=== PATIENT | female | born 1950 | race Caucasian/White ===

== ENCOUNTER → 2021-06-03 14:02 | Outpatient (BNVA) | payer OTHER, SELFPAY | PROVIDERS: PCP General Practice; Referring Provider General Practice; Visit Provider Internal Medicine | DX: I10 Essential (primary) hypertension (principal); R00.2 Palpitations | CPT/HCPCS: 93005; 99202 ==

== ENCOUNTER → 2021-08-13 14:05 | Outpatient (REF) | payer OTHER, SELFPAY ==
--- NOTE | 2021-08-13 14:09 | HM_ITS ---
Conclusion: 1. Patient was monitored for total period of 3 days 2. Baseline rhythm is normal sinus rhythm with average heart rate of 65 beats per minute 3. Seven short episodes of supra chronic tachycardia noted longest at 8 beats 4. Total of 264 PACs accounting for 0.09% total burden account for rare PACs 5. No patient reported events MTDD
== END ==
LOC: HO.CARD 14:05
PROVIDERS: PCP General Practice; Visit Provider Internal Medicine
DX: R00.2 Palpitations (principal)
CPT/HCPCS: 93242

== ENCOUNTER → 2021-09-07 13:52 | Outpatient (REF) | payer MEDICARE, SELFPAY ==
--- NOTE | 2021-09-07 13:55 | CA_ITS ---
Transthoracic Echocardiogram Patient (Last, First, Middle): Charlene Anderson, Gender: Female Date of : 1950 Age: 70 Procedure Date: 09/07/2021 Procedure Type: Transthoracic Echocardiogram Location: OP Height: 160.02 cm Weight: 89.81 kg BSA: 1.93 m2 Heart Rate: bpm BP: 128 / 70 mmHg Multimedia Production Assistant: JUDY Referring MD: Angel Nguyen MD Thrill Performer: Kamran Schmidt MD Symptoms: R00.2 - Palpitations Study Quality: Fair ECG Rhythm: Sinus Conclusions: - 1. Normal LV systolic function with mild LVH with grade I diastolic dysfunction 2> Mildly dilated ascending aorta at 3.7 cm with trace AI 3. Normal RVSP 4. No gross pericardial effusion Findings Left Ventricle Normal left ventricular cavity size. There is mildly increased left ventricular wall thickness. The left ventricular systolic function is hyperdynamic. The visually estimated ejection fraction is >70%. Spectral Doppler is indicative of an impaired relaxation filling pattern. E/E prime ratio is <8, consistent with normal filling pressures. Evidence suggests grade I (mild) diastolic dysfunction. Right Ventricle Normal right ventricular cavity size and systolic function. Atria The left atrium is normal in size. Interatrial shunt cannot be excluded. The right atrium is normal in size. Aortic Valve The aortic valve was not well visualized. There is no aortic valve stenosis. There is trace (trivial) aortic valve regurgitation. Mitral Valve Likely normal mitral valve structure and function. There is trace mitral valve regurgitation. There is no mitral valve stenosis. Pulmonic Valve The pulmonic valve was not well visualized. Tricuspid Valve Likely normal tricuspid valve structure and function. There is trace tricuspid valve regurgitation. The right ventricular systolic pressure is normal. The right ventricular systolic pressure is 25 mmHg. Normal right atrial pressure. There is no evidence of pulmonary hypertension. Great Vessels The pulmonary artery was not well visualized. There is mild dilatation of the ascending aorta measuring 3.70 cm. Venous The inferior vena cava is normal in size and collapses greater than 50% with inspiration. Pericardium/Pleural There is no evidence of pericardial effusion. Prior Study Comparison No prior study available for comparison. Measurements 2D Linear Measurements IVSd: 1.29 0.6-0.9/0.6-1.0 cm LVIDd: 4.49 3.9-5.3/4.2-5.9 cm LVIDd Index: 2.33 2.4-3.2/2.2-3.1 cm/m2 LVIDs: 2.67 2.0-3.6 cm LVPWd: 1.29 0.7-1.1 cm LA Diam: 3.70 2.7-3.8/3.0-4.0 cm LAIDs Index: 1.92 1.5-2.3 cm/m2 LV Mass: 273.39 67-162/88-224 g LV Mass Index: 141.65 43-95/49-115 g/m2 LVOT Diam: 1.80 3.0+(-)1.3 cm 2D Systolic Function EF 4C: 71.80 >55% EF 2C: 80.40 >55% EF BiP: 76.80 >55% Mitral Valve MV Pk E: 0.69 MV PK A: 0.89 MV Decel Time: 239.00 E/A: 0.80 E'Lateral: 10.40 E'Medial: 8.05 E/E' Med: 8.50 E/E' Lat: 6.60 PHT: 70.00 MVA PHT: 3.14 Decel Lares: 2.87 Aortic Valve AoV Pk Henrry: 1.37 AoV Pk Grad: 8.00 AI Pk Henrry: 3.14 AI Lares: 1.19 LVOT LVOT Pk Henrry: 1.19 LVOT Mn Henrry: 0.78 LVOT VTI: 0.27 LVOT Pk Grad: 6.00 LVOT Mn Grad: 3.00 LVOT Diam: 1.80 LVOT Area: 2.54 Diastolic Function MV Pk E: 0.69 MV Pk A: 0.89 E/A: 0.80 E'Medial: 8.05 E/E' Med: 8.50 E' Laterial: 10.40 E/E' Lat: 6.60 Right Ventricle TAPSE (mm): 2.17 TVS' Henrry: 14.50 Tricuspid Valve TR Pk Henrry: 2.34 TR Pk Grad: 22.00 RA Press: 3.00 RVSP: 25.00 Great Vessels Aorta Ao Asc: 3.70 2.1-3.4 cm Updated in Other Vendor System with Status of Final Kamran Schmidt MD electronically signed on 09/07/2021 3:06:41 PM with status of Final
== END ==
LOC: HO.CARD 13:52
PROVIDERS: PCP General Practice; Visit Provider Internal Medicine Cardiovascular Disease
DX: R00.2 Palpitations (principal)
CPT/HCPCS: 93306

== ENCOUNTER → 2021-12-01 13:50 | Outpatient (BNVA) | payer MEDICARE, SELFPAY | PROVIDERS: PCP General Practice; Referring Provider General Practice; Visit Provider Nurse Practitioner Family | DX: I47.1 Supraventricular tachycardia (principal); I10 Essential (primary) hypertension; R00.2 Palpitations | CPT/HCPCS: 99212 ==

== ENCOUNTER 2022-02-04 13:13 | Outpatient (REF) | payer OTHER, SELFPAY ==
--- NOTE | ~2022-02-04 | MM_ITS ---
EXAMINATION: MM SCREENING DIGITAL BREAST TOMOSYNTHESIS, BILATERAL CLINICAL INFORMATION: Screening. Asymptomatic. The lifetime risk of breast cancer based on the Tyrer-Cuzick Model is 2%. COMPARISON: Mammography: 05/24/2016 TECHNIQUE: Digital breast tomosynthesis is performed in both the craniocaudal and mediolateral oblique views along with computer-aided detection (CAD). Synthesized 2D images are generated from the tomosynthesis. FINDINGS: There are scattered areas of fibroglandular density (ACR BI-RADS breast composition Category b). There are no significant masses, abnormal calcifications, or other abnormalities. No architectural abnormality. The axilla and skin contours are unremarkable. No significant changes. MM/MM tomosynthesis screening BI IMPRESSION: No mammographic evidence of malignancy. ASSESSMENT: BI-RADS 1: Negative RECOMMENDATION: Routine annual mammography screening. This patient's information was entered into a reminder system with a target due date for their next mammogram.
== END 2022-02-04 13:14 | disposition home or self-care (01) ==
LOC: HO.MAMMO 13:13
PROVIDERS: Visit Provider General Practice
DX: Z12.31 Encounter for screening mammogram for malignant neoplasm of breast (principal)
CPT/HCPCS: 77063; 77067

== ENCOUNTER 2024-05-25 13:31 | Emergency (ER) | payer OTHER, SELFPAY ==
--- NOTE | 2024-05-25 13:39 | ED.GENADULT ---
HPI - General Adult General Chief complaint: Skin/Abscess/Foreign Body Stated complaint: lump on back painfull Time Seen by Provider: 05/25/24 14:09 Source: patient and data support specialist (all interactions with this patient were facilitated with an [facility] optometric technologist) Mode of arrival: ambulatory Limitations: language barrier (all interactions with this patient were facilitated with an [facility] optometric technologist) History of Present Illness ED Provider: Cynthia Díaz PA-C HPI narrative: Patient is a 73 year old assigned female at with a history of HTN presenting to the emergency department today with an upper back abscess. Patient states that she had one of these on her chest before and has had the one on her back multiple times. Patient states that it will drain and then come back. Patient denies any dizziness, lightheadedness, abdominal pain, nausea, vomiting, fever, chills, blurry vision, double vision, loss of vision, chest pain, difficulty breathing, shortness of breath, back pain, night sweats, pain with urination, increased urinary frequency, increased urinary urgency, blood in her urine or stool, syncope or a near syncopal episode, recent trauma or falls, bowel incontinence, bladder incontinence, or any other complaints at this time. Relieving factors: none Exacerbating factors: none Associated symptoms: denies other symptoms Treatments prior to arrival: none Related Data Home Medications ?Medication ?Instructions ?Recorded ?Confirmed diazepam 5 mg tablet 5 mg PO DAILY 06/03/21 12/02/21 doxazosin 4 mg tablet 4 mg PO DAILY 06/03/21 12/02/21 lisinopril 20 1 tab PO DAILY 06/03/21 12/02/21 mg-hydrochlorothiazide 25 mg tablet metoprolol succinate 100 mg 100 mg PO DAILY 06/03/21 12/02/21 tablet,extended release 24 hr omeprazole 20 mg capsule,delayed 20 mg PO DAILY 06/03/21 12/02/21 release Previous Rx's ?Medication ?Instructions ?Recorded doxycycline hyclate 100 mg tablet 100 mg PO BID 7 days #14 tabs 05/25/24 Allergies Allergy/AdvReac Type Severity Reaction Status Date / Time aspirin [ASPIRIN] Allergy Unknown GI UPSET Verified 05/25/24 13:45 Review of Systems Constitutional: Constitutional: Reports no additional constitutional complaints, Denies chills, Denies fever(s) and Denies night sweats Eyes: Eyes: Reports no additional eye complaints, Denies blurry vision, Denies change in vision, Denies diplopia, Denies eye discharge, Denies loss of vision and Denies eye pain ENT: Denies dizziness Cardiovascular: Cardiovascular: Reports no additional cardiovascular complaints, Denies chest pain, Denies lightheadedness, Denies Loss of Consciousness and Denies dyspnea Respiratory: Respiratory: Reports no additional respiratory complaints and Denies dyspnea Gastrointestinal: Gastrointestinal: Reports no additional gastrointestinal complaints, Denies abdominal pain, Denies melena, Denies hematochezia, Denies change in bowel habits and Denies change in stool character Genitourinary: Genitourinary: Denies hematuria, Denies urinary frequency, Denies dysuria, Denies urinary incontinence, Denies urinary hesitancy and Denies urinary urgency Musculoskeletal: Musculoskeletal: Reports no additional musculoskeletal complaints, Denies numbness and Denies tingling Integumentary/Breasts: Comments: upper back abscess Neurologic: Denies dizziness, Denies loss of vision, Denies numbness and Denies tingling Psychiatric: Psychiatric: Reports no additional psychiatric complaints Endocrine: Endocrine: Reports no additional endocrine complaints Hematologic/Lymphatic: Hematologic/Lymphatic: Reports no additional hematologic/lymphatic complaints Allergic/Immunologic: Allergic/Immunologic: Reports no additional allergic/immunologic complaints [facility] Past Medical History Attestation statement: The following information was validated with the patient. Source: old records reviewed and nursing notes reviewed Medical History Essential hypertension Surgical History No pertinent past surgical history Family History Family History Mother Emphysema lung Father Diabetes Brother Heart disease Sister Pacemaker Social History Social History Alcohol intake: never Patient Tobacco Use Status: Never used Tobacco Advance Directives: No Advance Directives Information Provided: No Do you have a plan to hurt others: No Plan Physical Exam ED Vital Signs: Vital Signs - 24 hr 05/25/24 13:40 05/25/24 14:41 Temperature 97.7 F 97.7 F Pulse Rate 72 72 Respiratory Rate 18 18 Blood Pressure 139/59 L 139/59 L Pulse Oximetry 97 97 Oxygen Delivery Method Room Air Room Air BMI result Body Mass Index 34.5 Const General: cooperative, no acute distress, alert and awake Nutritional Appearance: well nourished Orientation/consciousness: patient oriented x3 Limitations: no limitations HENMT Head: Yes normal to inspection and Yes atraumatic Ears: hearing grossly normal bilaterally and external ears normal General nose exam: Normal external nose present, no nasal discharge noted and no epistaxis Face and sinus: Yes normal facial exam, No abrasion and No laceration Mouth: Normal oral and palatal mucosa present, no drooling and no muffled voice Eyes General: appearance normal, both eyes and all related structures Periorbital: periorbital findings normal Eyelids: Yes eyelids normal Conjunctivae: conjunctivae normal Pupils: Equal, round and reactive pupils present EOM: EOMs intact bilaterally Neck Neck: Yes normal visual inspection, Yes full ROM and Yes no lymphadenopathy Chest Chest palpation & inspection: normal inspection of the chest Resp Effort & Inspection: normal respiratory effort and able to speak in complete sentences GI Inspection: Yes normal to inspection Back/Spine/Pelvis Back/spine/pelvis image: 1. small erythematous area with fluctuance Neuro General: patient oriented x3 and moves all extremities Cranial nerves: Yes Equal, round and reactive pupils present Cognition (Neuro): normal cognition Extrem General: Yes normal to inspection, Yes full ROM and Yes capillary refill normal Psych Appearance: grossly normal Mental Status: mental status grossly normal Affect: normal affect Attitude: cooperative Thought process: Normal thought process present Thought content: Normal thought content present Insight: Good insight present (Psych) Course Course Course Narrative: This is an RME performed by Nguyen Venegas CNP: Additional HPI, ROS, PE not included below will be deferred to primary provider. Patient is a 73-year-old female who presents emergency department for evaluation of painful abscess to her upper back with onset a few days ago. On evaluation has surrounding erythema, central fluctuance, requiring drainage. Appears to have small amount of central drainage, declines attempt manual expression triage reporting that it was too painful. Will require room for incision and drainage. Denies history of diabetes. Reports a history of similar abscess on chest requiring surgical drainage. Procedures Abscess I/D Site: back Technique: needle aspiration Amount of fluid expressed (mL): 0.5 Sent for culture/gram staining?: No Irrigation: No Packing used?: none Medical Decision Making Medical Decision Making MDM Narrative: Patient is a 73 year old assigned female at with a history of HTN presenting to the emergency department today with an upper back abscess. Patient's physical exam was as noted in the physical exam portion of this note. I explained my physical exam findings to the patient. I answered all questions asked by the patient. Patient's abscess was aspirated with a needle per procedure note without incident. I stressed the importance of the patient taking her medication as directed (either prescribed or as the over the counter packaging recommends). I stressed the importance of the patient following up with her primary care provider and a general surgeon. I stressed the importance of the patient returning to the emergency department immediately if her symptoms were to worsen or if she were to develop any dizziness, shortness of breath, difficulty breathing, chest pain, blurry vision, loss of vision, nausea, vomiting, abdominal pain, fever, chills, back pain, or any other complaints. Patient verbalized agreement and understanding with this treatment plan and discharge. Differential Diagnosis Differential Diagnoses: The differential diagnosis associated with the presentation includes Abscess Admission/Observation Consideration of admission/observation: Escalation of care including admission/observation considered Patient would have been admitted to the hospital had her clinical presentation warranted hospital admission. Prescription Management I considered prescription management with: Antibiotic (patient prescribed an antibiotic for her abscess) Chronic Conditions Patient?s care impacted by: Hypertension Discharge Plan Discharge Clinical Impression: Abscess Patient Disposition: Home, Self-Care Instructions: Abscess Incision and Drainage (DC) Additional Instructions: Follow up with your primary care provider and a general surgeon. Take your antibiotic as prescribed. Return to the emergency department immediately if your symptoms worsen or if you develop any dizziness, shortness of breath, difficulty breathing, chest pain, blurry vision, loss of vision, nausea, vomiting, abdominal pain, fever, chills, back pain, or any other complaints. Godwin un seguimiento con cadet m?dico de cabecera y un cirujano general. [place] el antibi?mark seg?n lo prescrito. Acuda inmediatamente al servicio de urgencias si hattie s?ntomas empeoran o si presenta mareos, falta de aliento, dificultad para respirar, dolor tor?cico, visi?n borrosa, p?rdida de visi?n, n?useas, v?mitos, dolor abdominal, fiebre, escalofr?os, dolor de espalda o cualquier otra molestia. Prescriptions: New doxycycline hyclate 100 mg tablet 100 mg PO BID 7 Days Qty: 14 0RF No Action lisinopril-hydrochlorothiazide 20-25 mg tablet 1 tab PO DAILY doxazosin 4 mg tablet 4 mg PO DAILY metoprolol succinate 100 mg tablet extended release 24 hr 100 mg PO DAILY diazepam 5 mg tablet 5 mg PO DAILY omeprazole 20 mg capsule,delayed release(DR/EC) 20 mg PO DAILY Referrals: [facility] General Surgeons [Provider Group] (Call to establish and follow up with a general surgeon. Llame para establecer y seguir con un cirujano general.) Name,MD Richard [Primary Care Provider] - Interventions: ED Discharge Assessment Last Done: 05/25/24 14:41 Discharge Date/Time: 05/25/24 14:51 Print Language: [place] Citizen
[2024-05-25 13:40] VITALS: BP 139/59; PULSE 72; RESP 18; TEMP 36.5; O2SAT 97; BMI 34.5
[2024-05-25 14:41] VITALS: BP 139/59; PULSE 72; RESP 18; TEMP 36.5; O2SAT 97
== END 2024-05-25 14:51 | disposition home or self-care (01) ==
PROVIDERS: Emergency Provider Emergency Medicine; PCP Internal Medicine Geriatric Medicine
DX: L02.212 Cutaneous abscess of back [any part, except buttock and flank] (principal); I10 Essential (primary) hypertension
CPT/HCPCS: 10160; 99282; 99284

== ENCOUNTER 2024-12-06 15:34 | Emergency (ER) | payer OTHER, SELFPAY ==
[2024-12-06 15:41] VITALS: BP 178/94; PULSE 65; O2SAT 95
[2024-12-06 15:47] VITALS: BP 171/73; PULSE 70; RESP 18; TEMP 36.8; O2SAT 95; BMI 33.6
--- NOTE | 2024-12-06 15:49 | ECG_ITS ---
Test Reason : DIZZINESS Blood Pressure : */* mmHG Vent. Rate : 68 BPM Atrial Rate : 68 BPM P-R Int : 168 ms QRS Dur : 72 ms QT Int : 408 ms P-R-T Axes : 56 -8 13 degrees QTcB Int : 433 ms Normal sinus rhythm Normal ECG When compared with ECG of 17-Sep-2016 23:47, No significant change was found Referred By: Shlomo Amado Electronically Signed By: SHELDON VILLAGOMEZ MD
[2024-12-06 16:19] LABS: Basophils Percent Auto 0.3 % (0-2); Hemoglobin 13.4 g/dl (12.0-16.0); Imm Gran Abs Auto 0.05 X10*3/uL (0.00-0.03); Imm Gran Pct Auto 0.7 % (0.0-0.4); MANUAL DIFF FLAG SCAN; PLT CLUMP 1; Red Cell Distribution Width 13.2 % (11.0-16.0); SCAN SMEAR FLAG 1
[2024-12-06 16:20] LABS: Eosinophils Percent Auto 0.5 % (0-4); Hematocrit 38.6 % (37.0-47.0); Lymphocytes Absolute Auto 1.9 X10*3/uL (1.2-4.9); Lymphocytes Percent Auto 25.3 % (20-40); Mean Corpuscular HGB Conc 34.7 g/dl (31.0-35.0); Mean Corpuscular Hemoglobin 30.8 pg (27.0-33.0); Mean Corpuscular Volume 88.7 fL (80.0-98.0); Mean Platelet Volume 9.6 fL (9.4-12.3); Monocytes Absolute Auto 0.5 X10*3/uL (0.1-1.2); Monocytes Percent Auto 7.3 % (2-11); Neutrophils Absolute Auto 4.9 x10*3/uL (2.0-8.3); Neutrophils Percent Auto 65.9 % (45-73); Red Blood Count 4.35 X10*6/uL (4.20-5.50)
[2024-12-06 16:27] LABS: Troponin-I High Sensitivity 3.8 ng/L (<3.5-17.0)
[2024-12-06 16:30] LABS: White Blood Count 7.4 X10*3/uL (4.8-10.8)
[2024-12-06 16:32] LABS: Alanine Aminotransferase 11 U/L (0-31); Albumin Level 3.7 g/dL (3.5-5.0); Anion Gap 15 (12-20); Aspartate Amino Transferase 36 U/L (5-31); Bilirubin Total 0.3 mg/dL (0.0-1.0); Blood Urea Nitrogen 13 mg/dL (9-16); Calcium 9.4 mg/dL (8.4-10.2); Carbon Dioxide 25 mmol/L (22-29); Chloride 99 mmol/L (96-108); Creatinine Clr Calc Pharmacy 64.5; Estimated Glomerular Filt Rate > 60; Glucose Random 140 mg/dL (60-115); Magnesium 1.8 mg/dL (1.6-2.6); Potassium 4.7 mmol/L (3.3-5.1); Sodium 134 mmol/L (135-145); Total Protein 7.8 g/dL (6.5-8.0)
--- NOTE | 2024-12-06 16:39 | ED.GENADULT ---
HPI - General Adult General Chief complaint: General Medical Stated complaint: DIZZY,ABD PAIN Time Seen by Provider: 12/06/24 16:01 Source: patient Mode of arrival: ambulatory Limitations: no limitations History of Present Illness ED Provider: Dr. Misty Slater HPI narrative: Patient comes to the emergency room complaining of dizziness. Patient states that for a few days she has had intermittent dizziness described as the whole room spinning. Patient states that she moves the head a certain way or she stands up too fast everything spins around. The dizziness makes her feel very nauseous and has had episodes of vomiting. Patient denies abdominal pain. Patient denies fever chills, denies chest pain or shortness of breath, denies hematuria or dysuria. Related Data Home Medications ?Medication ?Instructions ?Recorded ?Confirmed diazepam 5 mg tablet 5 mg PO DAILY 06/03/21 12/02/21 doxazosin 4 mg tablet 4 mg PO DAILY 06/03/21 12/02/21 lisinopril 20 1 tab PO DAILY 06/03/21 12/02/21 mg-hydrochlorothiazide 25 mg tablet metoprolol succinate 100 mg 100 mg PO DAILY 06/03/21 12/02/21 tablet,extended release 24 hr omeprazole 20 mg capsule,delayed 20 mg PO DAILY 06/03/21 12/02/21 release Previous Rx's ?Medication ?Instructions ?Recorded doxycycline hyclate 100 mg tablet 100 mg PO BID 7 days #14 tabs 05/25/24 meclizine 25 mg tablet 25 mg PO TID PRN dizziness #14 tabs 12/06/24 Allergies Allergy/AdvReac Type Severity Reaction Status Date / Time aspirin [ASPIRIN] Allergy Unknown GI UPSET Verified 12/06/24 15:49 Review of Systems Review of Systems: Constitutional : No Weight loss, No Fever, No Chills, No Night Sweats, No Fatigue, No Malaise ENT/Mouth : No Hearing loss, No Ear Pain, No Nasal Congestion, No Sinus Pain, No Hoarseness, No sore throat, No Rhinorrhea, No Swallowing Difficulty Eyes: No Eye Pain, No Swelling, No Redness, No Foreign Body, No Discharge, No Vision Changes Cardiovascular : No Chest Pain, No SOB, No Dyspnea on Exertion, No Orthopnea, No Edema, No Palpitations Respiratory : No Cough, No Sputum, No Wheezing, No Smoke Exposure, No Dyspnea Gastrointestinal : No Nausea, No Vomiting, No Diarrhea, No Constipation, No abdominal Pain, No Hematochezia, No Melena Genitourinary : no irregular bleeding, No Dysuria, No Urinary Frequency, No Hematuria, No Urinary Incontinence, No Urgency, No Flank Pain, No Urinary Flow Changes, No Hesitancy Musculoskeletal : No joint pain, No Myalgias, No Joint Swelling Skin : No Skin Lesions, No rash Neuro : No Weakness, No Numbness, No Paresthesias, No Loss of Consciousness, Denies headache, patient complaining of dizziness Psych : No Anxiety/Panic, No Depression, No SI/HI/AH/VH, No Social Issues, Heme/Lymph: No Bruising, No Bleeding,No Lymphadenopathy Endocrine : No Polyuria, No Polydipsia, No Temperature Intolerance [facility] Past Medical History Medical History (Updated 12/06/24 @ 20:29 by Misty Slater MD) Vertigo Essential hypertension Surgical History No pertinent past surgical history Family History Family History Mother Emphysema lung Father Diabetes Brother Heart disease Sister Pacemaker Social History Social History Alcohol intake: former Patient Tobacco Use Status: Never used Tobacco Smoked in Last 30 Days: No Use of substances other than those prescribed or required for medical reasons: No Advance Directives: No Advance Directives Information Provided: No Physical Exam ED Vital Signs: Vital Signs - 24 hr 12/06/24 15:47 12/06/24 17:12 12/06/24 18:00 Temperature 98.2 F 98.9 F Pulse Rate 70 62 69 Respiratory Rate 18 18 18 Blood Pressure 171/73 H 134/56 L 157/72 H Pulse Oximetry 95 97 98 Oxygen Delivery Method Room Air Room Air Room Air 12/06/24 19:44 Temperature 98.7 F Pulse Rate 68 Respiratory Rate 14 Blood Pressure 133/56 L Pulse Oximetry 98 Oxygen Delivery Method Room Air BMI result Body Mass Index 33.6 Course Course Course Narrative: patient receiving IV fluids, Zofran in meclizine p.o. Medications Administered Discontinued Medications Generic Name Dose Route Start Last Admin Trade Name Freq PRN Reason Stop Dose Admin Sodium Chloride 1,000 mls @ 999 mls/hr 12/06/24 16:38 12/06/24 18:26 Ns IVCONT 12/06/24 17:38 Infused .Q1H1M ONE Infusion Meclizine HCl 50 mg 12/06/24 16:38 12/06/24 17:12 Meclizine Hcl 25 Mg Tablet PO 12/06/24 16:39 50 mg ONCE ONE Administration Ondansetron HCl 4 mg 12/06/24 16:38 12/06/24 17:12 Ondansetron Hcl 4 Mg/2 Ml Vial IVPUSH 12/06/24 16:39 4 mg ONCE ONE Administration Medical Decision Making Medical Decision Making [facility] Narrative: my interpretation of labs: Normal hematology and chemistry, normal LFTs , normal troponin after IV fluids and meclizine, patient states that she feels completely back to normal. Patient denies any dizziness, able to walk With her baseline gait. Patient denies any chest pain or shortness of breath, patient being discharged in stable condition blood pressure 133/56, heart rate 68, respirations 14, oxygen saturation 98% on room air. Steady gait I discussed with the patient that the symptoms she had were likely secondary to BPPV rather than gastroenteritis patient's symptoms completely resolved, CVA is not suspected Lab Data 12/06/24 15:59 12/06/24 15:59 Labs: Lab Results 12/06/24 12/06/24 Range/Units 15:59 16:00 WBC 7.4 (4.8-10.8) X10*3/uL RBC 4.35 (4.20-5.50) X10*6/uL Hgb 13.4 (12.0-16.0) g/dl Hct 38.6 (37.0-47.0) % MCV 88.7 (80.0-98.0) fL MCH 30.8 (27.0-33.0) pg MCHC 34.7 (31.0-35.0) g/dl RDW 13.2 (11.0-16.0) % Plt Count 259 (160-400) X10*3/uL MPV 9.6 (9.4-12.3) fL Immature Gran % (Auto) 0.7 H (0.0-0.4) % Neut % (Auto) 65.9 (45-73) % Lymph % (Auto) 25.3 (20-40) % [place] % (Auto) 7.3 (2-11) % Eos % (Auto) 0.5 (0-4) % Baso % (Auto) 0.3 (0-2) % Lymph # (Auto) 1.9 (1.2-4.9) X10*3/uL [place] # (Auto) 0.5 (0.1-1.2) X10*3/uL Eos # (Auto) 0.0 (0.0-0.4) X10*3/uL Baso # (Auto) 0.0 (0.0-0.2) X10*3/uL Abs Immat Gran (auto) 0.05 H (0.00-0.03) X10*3/uL Absolute Neuts (auto) 4.9 (2.0-8.3) x10*3/uL Absolute Nucleated RBC 0.000 (0.0-0.012) X10*3/uL Nucleated RBC % (auto) 0.0 (0.0-0.2) /100WBC Smear Tech's Comments VERIFIED Hold Purple Top SEE NOTE Hold Blue Top SEE NOTE Sodium 134 L (135-145) mmol/L Potassium 4.7 (3.3-5.1) mmol/L Chloride 99 (96-108) mmol/L Carbon Dioxide 25 (22-29) mmol/L Anion Gap 15 (12-20) BUN 13 (9-16) mg/dL Creatinine 0.80 (0.5-1.4) mg/dL Estim Creat Clear Calc 64.5 Estimated GFR > 60 Random Glucose 140 H (60-115) mg/dL Calcium 9.4 (8.4-10.2) mg/dL Magnesium 1.8 (1.6-2.6) mg/dL Total Bilirubin 0.3 (0.0-1.0) mg/dL AST 36 H (5-31) U/L ALT 11 (0-31) U/L Alkaline Phosphatase 66 (39-117) U/L Troponin I High Sens 3.8 (<3.5-17.0) ng/L Total Protein 7.8 (6.5-8.0) g/dL Albumin 3.7 (3.5-5.0) g/dL Lipase 35 (8-78) U/L Discharge Plan Discharge Clinical Impression: Vertigo Patient Disposition: Home, Self-Care Instructions: Vertigo (ED) Additional Instructions: Please follow-up with your primary care physician tomorrow. If you have any worsening or new symptoms, please return to the emergency room or call 911 Prescriptions: New meclizine 25 mg tablet 25 mg PO TID PRN (Reason: dizziness) Qty: 14 0RF No Action doxycycline hyclate 100 mg tablet 100 mg PO BID 7 Days Qty: 14 0RF lisinopril-hydrochlorothiazide 20-25 mg tablet 1 tab PO DAILY doxazosin 4 mg tablet 4 mg PO DAILY metoprolol succinate 100 mg tablet extended release 24 hr 100 mg PO DAILY diazepam 5 mg tablet 5 mg PO DAILY omeprazole 20 mg capsule,delayed release(DR/EC) 20 mg PO DAILY Print Language: Upper Sorbian
[2024-12-06 16:56] LABS: Lipase 35 U/L (8-78)
[2024-12-06 17:07] LABS: Alkaline Phosphatase 66 U/L (39-117)
[2024-12-06 17:12] VITALS: BP 134/56; PULSE 62; RESP 18; TEMP 37.2; O2SAT 97
[2024-12-06] MEDS: Meclizine HCl 25 MG TABLET 50 MG PO (17:12)
[2024-12-06] MEDS: ondansetron HCL 4 MG/2 ML VIAL IVPUSH (17:12)
[2024-12-06] MEDS: 0.9 % Sodium Chloride 1,000 ML 999 ML IVCONT (17:12)
[2024-12-06 17:35] LABS: Platelet Count 259 X10*3/uL (160-400); SLIDE REVIEW VERIFIED
[2024-12-06 18:00] VITALS: BP 157/72; PULSE 69; RESP 18; O2SAT 98
[2024-12-06 19:44] VITALS: BP 133/56; PULSE 68; RESP 14; TEMP 37.1; O2SAT 98
--- NOTE | 2024-12-06 19:58 | PC.NURSE ---
pt reports relief of dizziness, ambulated with patient without difficulty. MD Slater aware. will d/c.
[2024-12-06 20:32] VITALS: BP 133/56; PULSE 68; RESP 14; TEMP 37.1; O2SAT 98
== END 2024-12-06 20:36 | disposition home or self-care (01) ==
PROVIDERS: Physician Assistant; Emergency Provider Emergency Medicine; PCP General Practice
DX: R42 Dizziness and giddiness (principal); I10 Essential (primary) hypertension
CPT/HCPCS: 36415; 80053; 83690; 83735; 84484; 85025; 93005; 96361; 96374; 99284; J2405

== ENCOUNTER → 2024-12-06 15:49 | Outpatient (BNV) | payer OTHER, SELFPAY | PROVIDERS: Emergency Provider Emergency Medicine; PCP General Practice; Visit Provider Internal Medicine Cardiovascular Disease | DX: R42 Dizziness and giddiness (principal) | CPT/HCPCS: 93010 ==

== ENCOUNTER 2025-06-12 09:35 | Outpatient (REF) | payer OTHER, SELFPAY ==
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
--- OUTSIDE RECORDS SUMMARY | 2025-06-12 10:36 | XMS_ITS | Encounter Summary ---
Author Organization [employer] Address [address] [facility] [address] [facility] [address] [place] [address] Care Team Providers Care Painting Trades Worker Name Role Phone Leatha Menendez MD Primary Care Provider Encounter Details Date Type Department Care Team ([facility] st Contact Info) Description 08/05/2024 Telephone [facility] [address] [place], [place] [phone] Leatha Menendez MD [address] [place], [place] [phone] Social History Tobacco Use Types Packs/Day Years Used Date Smoking Tobacco: Never Smokeless Tobacco: Never Alcohol Use Standard Drinks/Week Comments Never 0 (1 standard drink = 0.6 oz pur e alcohol) PHQ-2 Answer Date Recorded Patient Health Questionnaire-2 Score 0 10/07/2022 Housing Stability Answer Date Recorded What is your housing situation today? I have gee burden 07/22/[address] you li [...] things needed for daily living? No 07/22/2023 Utilities Answer Date Recorded In the past 12 months, has t he electric, gas, oil or water company threatened to shut off services in your home? No 07/22/2023 Depression Answer Date Recorded Patient Health Questionnaire-2 Score 0 10/07/2022 Comments Unknown Sex and Gender Information Value Date Recorded Sex Assigned at Female 07/11/2022 10:16 AM EDT Legal Sex Female 10:16 AM EDT Gender Identity Female 07/11/2022 10:16 AM EDT Sexual Orientation Straight 07/11/2022 10 :16 AM EDT documented as of this encounter Plan of Treatment Upcoming Encounters Date Type Department Care Team (Late st Contact Info) Description 08/11/2025 1:30 PM EST Office Visit [facility] [address] [place] [address] Leatha Menendez MD [address] [place] [address] 08/26/2025 1:30 PM EST Office Visit [facility] [address] [place] [address] Eduar, Esha, OD [address] [place] [address] documented as of this encounter Visit Diagnoses Not on filedocumented in this encounter Care Teams Painting Trades Worker Relationship Specialty Start Date End Date Leatha Menendez MD [address] [place] [address] PCP - General Family Medicine 09/25/20 documented as of this encounter
--- OUTSIDE RECORDS SUMMARY | 2025-06-12 10:36 | XMS_ITS | Encounter Summary ---
Author Organization [employer] Address [address] [facility] 7t [place] [address] Care Team Providers Care Parts Cleaner Name Role Phone Leatha Menendez MD Primary Care Provider [phone] Encounter Details Date Type Department Care Team (Latest Contact Info) Description 06/10/2025 Travel Social History Tobacco Use Types Packs/Day Years [...] the past 12 months, has t he [employer], gas, oil or water company threatened to [...] Description 08/11/2025 1:30 PM EST Office Visit [facility] [address] [place] [address] Leatha Menendez MD [address] [place] [address] 08/26/2025 1:30 PM EST Office Visit [facility] [address] [place] [address] Esha Witt, OD [address] [place] [address] documented as of this encounter Visit Diagnoses Not on filedocumented in this encounter Additional Health Concerns Assessment Noted Time PHQ-9 Depression Total Score: 13 025 10:38 AM EDT documented as of this encounter Care Teams Parts Cleaner Relationship Specialty Start Date End Date Leatha Menendez MD [address] [place] [address] PCP - General Family Medicine 09/25/20 documented as of this encounter
--- OUTSIDE RECORDS SUMMARY | 2025-06-12 10:36 | XMS_ITS | Encounter Summary ---
Author Organization [employer] Address [address] [facility] 7t [place] [address] Care Team Providers Care Zipper Lining Folder Name Role Phone Leatha Menendez MD Primary Care Provider [phone] Encounter Details Date Type Department Care Team (Late Contact Info) Description 02/03/2023 Telephone [facility] [address] [place], [place] [phone] Eduar, Esha, OD [address] [place] [address] Social History Tobacco Use Types Packs/Day Years Used Date Smoking Tobacco: Never Smokeless Tobacco: Never PHQ-2 Answer Date Recorded Patient Health Questionnaire-2 Score 0 10/07/2022 Depression Answer Date Recorded Patient Health Questionnaire-2 Score 0 10/07/2022 Comments Unknown Sex and Gender Information Value Date Recorded Sex Assigned at Female 07/11/2022 10:16 AM EDT Legal Sex Female 10:16 AM EDT Gender Identity Female 07/11/2022 10:16 AM EDT Sexual Orientation Straight 07/11/2022 10 :16 AM EDT COVID-19 Exposure Response Date Recorded In the last 10 days, have yo u been in contact with someone who was confirmed or suspected to have Coronavirus/COVID-19? No / Unsure 01/27/2023 2:53 PM EDT documented as of this encounter Plan of Treatment Upcoming Encounters Date Type Department Care Team (Late Contact Info) Description 08/11/2025 1:30 PM EST Office Visit [facility] [address] [place] [address] Leatha Menendez MD [address] [place] [address] 08/26/2025 1:30 PM EST Office Visit [facility] [address] [place], [place] [phone] Esha Witt, OD [address] [place] [address] documented as of this encounter Visit Diagnoses Not on filedocumented in this encounter Care Teams Zipper Lining Folder Relationship Specialty Start Date End Date Leatha Menendez MD [address] [place], [place] [phone] PCP - General Family Medicine 09/25/20 documented as of this encounter
--- OUTSIDE RECORDS SUMMARY | 2025-06-12 10:36 | XMS_ITS | Encounter Summary ---
Author Organization [employer] Address [address] [facility] 7t [place] [address] Care Team Providers Care Biomechanical Engineer Name Role Phone Leatha Menendez MD Primary Care Provider [phone] Encounter Details Date Type Department Care Team (Late Contact Info) Description 08/19/2022 Orders Only [facility] [address] [place] [phone] Leatha Menendez MD [address] [place] [address] Allergy, sequela (Primary Dx); Itching Social History Tobacco Use Types Packs/Day Years Used Date Smoking Tobacco: Never Assessed Comments Unknown Sex and Gender Information Value Date Recorded Sex Assigned at Female 07/11/2022 10:16 AM EDT Legal Sex Female 10:16 AM EDT Gender Identity Female 07/11/2022 10:16 AM EDT Sexual Orientation Straight 07/11/2022 10 :16 AM EDT documented as of this encounter Plan of Treatment Upcoming Encounters Date Type Department Care Team (Late Contact Info) Description 08/11/2025 1:30 PM EST Office Visit [facility] [address] [place] [address] Leatha Menendez MD [address] [place] [address] 08/26/2025 1:30 PM EST Office Visit [facility] [address] [place] [address] Eduar, Esha, OD [address] [place] [address] documented as of this encounter Visit Diagnoses Diagnosis Allergy, sequela- Primary Itching Unspecified pruritic disorder documented in this encounter Care Teams Biomechanical Engineer Relationship Specialty Start Date End Date Leatha Menendez MD [address] [place] [phone] PCP - General Family Medicine 09/25/20 documented as of this encounter
--- OUTSIDE RECORDS SUMMARY | 2025-06-12 10:36 | XMS_ITS | Encounter Summary ---
Author Organization [employer] Address [address] [facility] 7t [place] [address] Care Team Providers Care Strategic Planning Director Name Role Phone Leatha Menendez MD Primary Care Provider [phone] Reason for Visit * Reason Onset Date Comments Chart Prep 06/09/2025 Encounter Details Date Type Department Care Team ([facility] st Contact Info) Description 06/09/2025 Telephone [facility] MEDICINE [address] [place], [place] [phone] Leatha Menendez MD [address] [place], [place] [phone] Chart Prep Social History Tobacco Use Types Packs/Day Years [...] the past 12 months, has t he [employer], Consumer Agent [employer] (CAP), oil or water [employer] threatened to shut off services in your home? No 07/22/2023 Depression Answer Date Recorded Patient Health Questionnaire-2 Score 6 02/04/2025 Comments Unknown Sex and Gender Information Value Date Recorded Sex Assigned at Female 07/11/2022 10:16 AM EDT Legal Sex Female 10:16 AM EDT Gender Identity Female 07/11/2022 10:16 AM EDT Sexual Orientation Straight 07/11/2022 10 :16 AM EDT documented as of this encounter Miscellaneous Notes * Telephone Encounter - Lizzie Mcpherson [place] - 06/09/2025 3:22 PM EDT Chart Prep Labs: not applicable Images: done Referrals: Patient refuse seen at other facility Vaccines due: Covid, Flu, Tdap, RSV, and Zoster Screenings: not applicable Overdue care gaps: SDOH, PHQ-9, and VIJAY-7 documented in this encounter Plan of Treatment Upcoming Encounters Date Type Department Care Team (Late st Contact Info) Description 08/11/2025 1:30 PM EST Office Visit [facility] MEDICINE [address] [place] [address] Leatha Menendez MD [address] [place] [address] 08/26/2025 1:30 PM EST Office Visit [facility] OPTOMETRY [address] [place], [place] [phone] Esha Witt, OD [address] [place] [address] documented as of this encounter Visit Diagnoses Not on filedocumented in this encounter Additional Health Concerns Assessment Noted Time PHQ-9 Depression Total Score: 13 02/04/ 025 10:38 AM EDT documented as of this encounter Care Teams Strategic Planning Director Relationship Specialty Start Date End Date Leatha Menendez MD [address] [place], [place] [phone] PCP - General Family Medicine 09/25/20 documented as of this encounter
--- OUTSIDE RECORDS SUMMARY | 2025-06-12 10:37 | XMS_ITS | Encounter Summary ---
Author Organization [employer] Address [address] [facility] 7t [place] [address] Care Team Providers Care Ambulance Driver Name Role Phone Leatha Menendez MD Primary Care Provider Reason for Visit * Reason Comments Med Refill Encounter Details Date Type Department Care Team (Late st Contact Info) Description 11/10/2022 Refill [facility] MED & PEDS [address] [place], [place] [phone] Leatha Menendez MD [address] [place] [address] [phone] Rash and nonspecific skin eruption Social History Tobacco Use Types Packs/Day Years Used Date Smoking Tobacco: Never Assessed PHQ-2 Answer Date Recorded Patient Health Questionnaire-2 [...] 1:30 PM EST Office Visit [facility] MEDICINE [address] [place], [place] [phone] Leatha Menendez MD [address] [place] [address] [phone] 08/26/2025 1:30 PM EST Office Visit [facility] OPTOMETRY [address] [place] [address] Esha Witt, OD [address] [place] [address] documented as of this encounter Visit Diagnoses Diagnosis Rash and nonspecific skin eruption Rash and other nonspecific skin eruption documented in this encounter Care Teams Ambulance Driver Relationship Specialty Start Date End Date Leatha Menendez MD [address] [place] [address] PCP - General Family Medicine 09/25/20 documented as of this encounter
--- OUTSIDE RECORDS SUMMARY | 2025-06-12 10:37 | XMS_ITS | Clinical Summary ---
Author Organization [facility] Address [address] [place] [address] [place] [address] Phone Care Team Providers Care Semiconductor Wafers Etch Operator Name Role Phone Leatha Menendez MD Primary Care Provider [phone] Allergies No known active allergies Medications diazePAM (VALIUM) 5 MG tablet Take by mouth every 8 (eight) hours if needed for anxiety Active cyclobenzaprine (FLEXERIL) 10 MG tablet Take 10 mg by mouth 3 (three) times a day if needed for muscle spasms Active acetaminophen (TYLENOL 8 HOUR) 650 MG 8 hr tablet Take 650 mg by mouth every 8 (eight) hours if needed for mild pain Do not crush, chew, or split. Active lisinopril-hydr oCHLOROthiazide (PRINZIDE,ZESTO RETIC) 20-25 MG per tablet Take 1 tablet by mouth 1 (one) time each day Active metoprolol succinate XL (TOPROL-XL) 100 MG 24 hr tablet Take 100 mg by mouth 1 (one) time each day Do not crush or chew. Active doxazosin (CARDURA) 4 MG tablet Take 4 mg by mouth every night Active atorvastatin (LIPITOR) 40 MG tablet Take 40 mg by mouth 1 (one) time each day Active Valerian Root 100 MG capsule Take by mouth Active Melatonin 5 MG capsule Take by mouth Active omeprazole (PriLOSEC) [address] capsule Take 20 mg by mouth 1 (one) time each day Do not crush or chew. Active carbamide peroxide (DEBROX) 6.5 % otic solution 5 drops 2 (two) times a day Active Social History Tobacco Use Types Packs/Day Years Used Date Smoking Tobacco: Never Smokeless Tobacco: Never Alcohol Use Standard Drinks/Week Comments Never 0 (1 standard drink = 0.6 oz pur e alcohol) Comments Unknown Sex and Gender Information Value Date Recorded Sex Assigned at Not on file Legal Sex Female 11:43 AM EDT Gender Identity Not on file Sexual Orientation Not on file Plan of Treatment Health Maintenance Due Date Last Done Comments Pneumococcal Vaccine: 50+ Ye ars (1 of 1 - PCV) 1998 Influenza Vaccine (#1) 2025 Hepatitis B Vaccine Aged Out No longe r eligible based on patient's age to complete this topic Insurance # [address] [place] [id number] [facility] Care Teams Semiconductor Wafers Etch Operator Relationship Specialty Start Date End Date Leatha Menendez MD [address] [place] [address] PCP - General Uppers Edge Burnisher 04/20/21
--- OUTSIDE RECORDS SUMMARY | 2025-06-12 10:37 | XMS_ITS | Clinical Summary ---
Author Organization [employer] Address [address] [facility] 7t [place] [address] Care Team Providers Care Traffic Signal Technician Name Role Phone Leatha Menendez MD Primary Care Provider [phone] Allergies Active Allergy Reactions Criticality Noted Date Comments Aspirin 08/17/2016 Other reaction(s): nausea, upset stomach Medications * This document contains information received from the source organization and may not represent a complete record from that organization. betamethasone dipropionate (Diprolene) 0.05 % ointmentIndicati ons:Rash and nonspecific skin eruption Apply to affected area(s) a thin layer daily for 7-10 days, no more 90 g 3 Active diazePAM (Valium) 5 MG tablet Take 1 tablet by mouth three times daily as needed 3 Active latanoprost (Xalatan) 0.005 % ophthalmic solution 3 Active melatonin 5 MG tablet TAKE 1 TABLET BY MOUTH AT BEDTIME FOR SLEEP 2 Active triamcinolone (Kenalog) 0.1 % cream Mix with 454 grams of cerave cream and apply thin layer of mixture topically to the affected area twice daily for 2 weeks 2 Active Valerian Root 100 MG capsule Take by mouth. 1 Active omeprazole (PriLOSEC) [address] capsule Take 20 mg by mouth 1 (one) time each day Do not crush or chew. 1 Active Menthol-Methyl Salicylate (Muscle Rub) 10-15 % creamIndications :Muscle spasms of neck Apply 1 application topically if needed in the morning, at noon, and at bedtime (spasm). 85 g 2 3 Active metoprolol succinate XL (Toprol-XL) 100 MG 24 hr tablet TAKE 1 TABLET BY MOUTH DAILY 90 tablet 3 5 Active lisinopril-hydro CHLOROthiazide 20-25 MG tablet TAKE 1 TABLET BY MOUTH DAILY 90 tablet 3 5 Active atorvastatin (Lipitor) 20 MG tablet Take 1 tablet (20 mg) by mouth Once per day. 90 tablet 3 5 02/05/20 26 Active cetirizine (ZyrTEC) 10 MG tablet Take 1 tablet (10 mg) by mouth Once per day. For vertigo, as needed 30 tablet 11 5 02/05/20 26 Active DULoxetine (Cymbalta) [address] capsule Take 1 capsule (20 mg) by mouth Once per day. Do not crush or chew. 90 capsule 3 5 02/05/20 26 Active doxazosin (Cardura) 4 MG tablet TAKE 1 TABLET BY MOUTH DAILY 90 tablet 3 5 Active ketorolac (Acular) 0.5 % ophthalmic solutionIndicati ons:Other glaucoma of both eyes 5 Active prednisoLONE acetate (Pred-Forte) 1 % ophthalmic suspensionIndica tions:Other glaucoma of both eyes 5 Active Active Problems Problem Noted Date Diagnosed Date Atrial tachycardia 02/04/2025 Heart palpitations 02/04/2025 Chronic right shoulder pain 02/04/2025 Assessment & Plan (02/04/2025 5:10 PM EDT): Consider chronic pain group, trigger points, acupuncture Muscle spasms of neck 03/28/2023 Assessment & Plan (03/28/2023 8:31 PM EDT): Bilateral trapezius spasms Hot towel Gentle ROM stretching Flexeril, muscle rub PT referral Hypertensive kidney disease, stage III (CMS/HCC) 01/18/2021 Assessment & Plan (03/28/2023 8:38 PM EDT): Avoid nephrotoxins followup with nephro BP control Assessment & Plan (10/10/2022 12:50 PM EST): Avoid nephrotoxins followup with nephro BP control Arthritis of left acromioclavicular joint 2017 Assessment & Plan (10/10/2022 12:51 PM EST): Conservative mgmt Does not desire injections of surgery currently Degeneration of cervical intervertebral disc 07/2018 Lumbar spondylosis 04/01/2017 Helicobacter pylori gastritis 08/12/2016 Dyslipidemia 07/06/2016 Adjustment disorder with anxious mood 07/01/2016 Assessment & Plan (03/28/2023 8:39 PM EDT): Continue followup with Marcello Parson Encouraged her to talk to her family about how she is not feeling heard or believed Assessment & Plan (10/10/2022 12:50 PM EST): Continue followup with Marcello Parson Impaired fasting glucose 05/30/2016 Essential hypertension 05/13/2016 Assessment & Plan (03/28/2023 8:38 PM EDT): At goal at home <140/90 most of the time She does not want to add more medications currently Assessment & Plan (10/10/2022 12:50 PM EST): Not at goal some days, but other days <140/90 Switch meds to evening to lower AM Bps that are usually the higher ones Impingement syndrome of shoulder region 05/13/20 16 Obesity 05/13/2016 Osteoarthritis of knee 05/13/2016 Tinnitus 05/13/2016 Resolved Problems Problem Noted Date Diagnosed Date Resolved Date Abscess 02/04/2025 06/10/2025 Encounters * This document contains information received from the source organization and may not represent a complete record from that organization. Date Type Department Care Team Description 06/10/2025 11:00 AM EDT Office Visit [facility] MEDICINE [address] [place] [phone] Leatha Menendez MD Class 1 obesity with serious comorbidity and body mass index (BMI) of 33.0 to 33.9 in adult, unspecified obesity type (Primary Dx); Essential hypertension; Impaired fasting glucose; Hypertensive kidney disease, stage III (CMS/HCC); Osteoarthritis of knee, unspecified laterality, unspecified osteoarthritis type; Pre-op exam; Other glaucoma of both eyes 06/10/2025 Travel 06/09/2025 Telephone [facility] MEDICINE [address] [place] [address] Leatha Menendez MD Chart Prep 05/07/2025 Refill [facility] MED & PEDS [address] [place] [address] Leatha Menendez MD from Last 3 Months Immunizations Immunization Administration Dates Next Due Influenza injectable quadrivalent preservative f ree 10/05/2016 Influenza, High Dose Seasonal, Preservative Free 06/21/2018,06/14/2017 Moderna Covid-19 Vaccine 12+ 01/19/2021,12/23/19 21 Pneumococcal Conjugate PCV 13 10/05/2016 Pneumococcal Polysaccharide PPSV23 06/21/2018 Social History Tobacco Use Types Packs/Day Years Used Date Smoking Tobacco: Never Smokeless Tobacco: Never Tobacco Cessation:Counseling Given: Not Answered Alcohol Use Standard Drinks/Week Comments Never 0 [...] Orientation Straight 07/11/2022 10 :16 AM EDT Last Filed Vital Signs Vital Sign Reading Time Taken Comments Blood Pressure 130/80 06/10/2025 11:15 AM EDT Pulse 60 06/10/2025 11:15 AM EDT Temperature 36.2 C (97.1 F) 06/10/2025 11:15 AM EDT Respiratory Rate 18 06/10/2025 11:15 AM EDT Oxygen Saturation 99% 03/27/2023 2:29 PM EDT Inhaled Oxygen Concentration - - Weight 91.9 kg (202 lb 9.6 oz) 06/10/2025 11:15 AM EDT Height 165.1 cm (5' 5 ) 06/10/2025 11:15 AM EDT Body Mass Index 33.71 06/10/2025 11:15 AM EDT Plan of Treatment Upcoming Encounters Date Type Department Care Team (Late st Contact Info) Description 08/11/2025 1:30 PM EST Office Visit [facility] MEDICINE [address] [place] [address] Leatha Menendez MD [address] [place], [place] [phone] 08/26/2025 1:30 PM EST Office Visit [facility] OPTOMETRY [address] [place] [address] sEha Witt, OD [address] [place], [place] [phone] Health Maintenance Due Date Last Done Comments Hepatitis C Screening 1966 DTaP/Tdap/Td Vaccines (1 - Tdap) 1967 Zoster Vaccines (1 of 2) 1998 SDOH Screening 10/07/2023 10/07/2022 RSV Patients and Patients Aged 60 years or older (1 - 1-dose 75+ series) 2023 COVID-19 Vaccine (3 - 2024-2 6 season) 2025 01/19/2021, 12/22/2020 Influenza Vaccine (#1) 2025 8, 06/14/2017, 10/05/2016 Depression Monitoring 08/07/2025 02/04/2025 , 02/04/2025 Alcohol/Substance Use Screening 02/04/2026 02/04/2025 Tobacco Screening 06/10/2026 06/10/2025 Lipid Panel 10/11/2027 10/11/2022, 01/24/2022, 12/22/2020 Pneumococcal Vaccine: 50+ Years Completed 06/21/2018, 10/05/2016 HIB Vaccines Aged Out No longer eligi ble based on patient's age to complete this topic HPV Vaccines Aged Out No longer eligi ble based on patient's age to complete this topic Hepatitis A Vaccines Aged Out No long er eligible based on patient's age to complete this topic Hepatitis B Vaccines Aged Out No long er eligible based on patient's age to complete this topic IPV Vaccines Aged Out No longer eligi ble based on patient's age to complete this topic Meningococcal B Vaccine Aged Out No l onger eligible based on patient's age to complete this topic Meningococcal Vaccine Aged Out No amish ephraim eligible based on patient's age to complete this topic RSV under 20 months Aged Out No longe r eligible based on patient's age to complete this topic Rotavirus Vaccines Aged Out No longer eligible based on patient's age to complete this topic Procedures Procedure Name Priority Date/Time Associated Diagnosis Comments LIPID PANEL, STANDARD Routine 10/11/2022 1:09 PM EST Essential hypertension from Last 3 Months or Most Recently Relevant to Health Maintenance Results * (ABNORMAL) Lipid Panel, Standard (10/11/2022 1:09 PM EST) Cholesterol, Total 181 <200 mg/dL [facility] [place] [facility] HDL Cholesterol 60 > OR = 50 mg/dL [facility] [place] [facility] Triglycerides 111 <150 mg/dL [facility] [place] [facility] LDL Cholesterol 100(H) mg/dL (calc) [facility] [place] [facility] Comment: Reference range: <100 Desirable range <100 mg/dL for primary prevention; <70 mg/dL for patients with CHD or diabetic patients with > or = 2 CHD risk factors. LDL-C is now calculated using the Vinh-Recio calculation, which is a validated novel method providing better accuracy than the Friedewald equation in the estimation of LDL-C. Vinh SS et al. ZECHARIAH. 2013;310(19): 0771-5615 (http://education.[employer]/faq/ZIS438) Chol/HDLC Ratio 3.0 <5.0 (calc) [facility] [place] [facility] Non-HDL Cholesterol 121 <130 mg/dL (calc) [facility] [place] [facility] Comment: For patients with diabetes plus 1 major ASCVD risk factor, treating to a non-HDL-C goal of <100 mg/dL (LDL-C of <70 mg/dL) is considered a therapeutic option. Blood Venous blood specimen / Unknown 10/11/2022 1:09 PM EST 10/11/2022 1:10 PM EST Narrative [facility] - 10/12/2022 5:46 AM EST FASTING:UNKNOWN FASTING: UNKNOWN us Leatha Menendez MD LAB BLOOD ORDERABLES Final Res ult [facility] [address], [place] [address] [facility] [address] , ([address]) [place] [address] from Last 3 Months or Most Recently Relevant to Health Maintenance Insurance [facility] CARE HOME OPTIONS (HMO D-SNP) [facility] [address] [place] [address] [address] [place] [address] Care Teams Traffic Signal Technician Relationship Specialty Start Date End Date Leatha Menendez MD [address] [place] [address] PCP - General Family Medicine 09/25/20
--- OUTSIDE RECORDS SUMMARY | 2025-06-12 10:37 | XMS_ITS | Encounter Summary ---
Author Organization [employer] Address [address] [facility] 7t [place] [address] Care Team Providers Care Requirements Manager Name Role Phone Leatha Menendez MD Primary Care Provider [phone] Encounter Details Date Type Department Care Team ([facility] st Contact Info) Description 11/04/2022 Telephone [facility] MEDICINE [address] [place], [place] [phone] Leatha Menendez MD [address] [place], [place] [phone] Social History Tobacco Use Types Packs/Day Years [...] suspected to have Coronavirus/COVID-19? No / Unsure 10/07/2022 1:48 PM EST documented as of this encounter Miscellaneous Notes * Telephone Encounter - Damari Bach RN - 11/14/2022 1:59 PM EST Call to Patient to inquire about transfer request. Patient is requesting transfer to Dr Amor as shesaw his for a sick visit and really likes the care he provides. Patient informed, unfortunately Dr Amor is no longer accepting New or Transfer Patients. Patient denies any issues with her current Provider only that she has difficulty expressing her symptoms and medical needs with her current provider as Dr Menendez does not speak Tajik. Patient informed that MAs are able to translate during visits but if she is still experiencing difficulty with communication she is able to request our MedicalInterpreter to assist during her visit, if available. Patient is agreeable to stay with her currentProvider and the plan of care at this time. * Telephone Encounter - Adam Darin - 11/04/2022 12:16 PM EST Tc from pt requesting a call back regarding having PCP change. Pt states don't feel satisfied with PCP. Advise will leaving in a message. Pt slovenian speaker Please contact pt at [phone] documented in this encounter Plan of Treatment Upcoming Encounters Date Type Department Care Team (Late st Contact Info) Description 08/11/2025 1:30 PM EST Office Visit [facility] MEDICINE [address] [place] [address] Leatha Menendez MD [address] [place] [address] 08/26/2025 1:30 PM EST Office Visit [facility] OPTOMETRY [address] [place] [address] Eduar, Esha, OD [address] [place] [address] documented as of this encounter Visit Diagnoses Not on filedocumented in this encounter Care Teams Requirements Manager Relationship Specialty Start Date End Date Leatha Menendez MD [address] [place] [address] PCP - General Family Medicine 09/25/20 documented as of this encounter
[2025-06-12 11:50] LABS: MANUAL DIFF FLAG NO
[2025-06-12 11:57] LABS: Hematocrit 36.1 % (37.0-47.0); Hemoglobin 12.7 g/dl (12.0-16.0); Imm Gran Abs Auto 0.02 X10*3/uL (0.00-0.03); Imm Gran Pct Auto 0.3 % (0.0-0.4); Lymphocytes Absolute Auto 2.3 X10*3/uL (1.2-4.9); Mean Corpuscular HGB Conc 35.2 g/dl (31.0-35.0); Mean Corpuscular Hemoglobin 30.9 pg (27.0-33.0); Mean Corpuscular Volume 87.8 fL (80.0-98.0); NRBC Abs Auto 0.000 X10*3/uL (0.0-0.012); NRBC Pct Auto 0.0 /100WBC (0.0-0.2); Platelet Count 249 X10*3/uL (160-400); Red Blood Count 4.11 X10*6/uL (4.20-5.50); White Blood Count 6.4 X10*3/uL (4.8-10.8)
[2025-06-12 12:21] LABS: Alanine Aminotransferase 11 U/L (0-31); Albumin Level 4.0 g/dL (3.5-5.0); Alkaline Phosphatase 73 U/L (39-117); Anion Gap 10 (12-20); Aspartate Amino Transferase 20 U/L (5-31); Blood Urea Nitrogen 14 mg/dL (9-16); Calcium 9.0 mg/dL (8.4-10.2); Carbon Dioxide 28 mmol/L (22-29); Chloride 103 mmol/L (96-108); Cholesterol 217 mg/dL (<200); Estimated Glomerular Filt Rate > 60; HDL Cholesterol 59 mg/dL (>40); Potassium 4.0 mmol/L (3.3-5.1); Sodium 137 mmol/L (135-145); Total Protein 7.1 g/dL (6.5-8.0); Triglycerides 134 mg/dL (<150)
== END 2025-06-12 09:36 | disposition home or self-care (01) ==
LOC: HO.HHCL 09:35
PROVIDERS: PCP General Practice; Visit Provider General Practice
DX: Z01.818 Encounter for other preprocedural examination (principal); E66.811 Obesity, class 1; Z68.33 Body mass index [BMI] 33.0-33.9, adult
CPT/HCPCS: 36415; 80053; 80061; 83036; 85025